=== PATIENT | female | born 1945 | race Caucasian/White ===

== ENCOUNTER 2025-06-06 20:01 | Emergency (ER) | payer MEDICARE, OTHER ==
[~2025-06-06] VITALS: Ht 172.7 cm; Wt 97.5 kg
--- NOTE | 2025-06-06 20:16 | Physician Documentation ---
History of Present Illness ~ Chief Complaint: Mechanical Fall Stated Complaint: FALL Time Seen by MD: 21:05 OK to notify your PCP?: Yes Source: patient Mode of Arrival: POV Exam Limitations: no limitations HPI 79-year-old female presents with laceration to left hand and left knee after tripping and falling on uneven pavement which are bandaged in triage bleeding controlled. She takes Coumadin for AFib. Denies any head strike or other i njuries. Denies any loss of consciousness. Medication Reconciliation Allergies: Coded Allergies: ciprofloxacin (Verified Allergy, Unknown, 06/06/25) meperidine (Verified Allergy, Unknown, 06/06/25) sulfamethoxazole (Verified Allergy, Unknown, 06/06/25) trimethoprim (Verified Allergy, Unknown, 06/06/25) Review of Systems All Other Systems at this time: Reviewed and Negative ROS Patient denies any other acute symptoms other than above. All other systems are negative Physical Exam Vital Signs: RN Vital Signs have been reviewed: Yes Pulse Oximetry Reflects: adequate oxygenation Physical Exam General Appearance: No distress HEENT: Normal OP, moist oral mucosa, PERRL, EOMI Neck: supple, normal ROM, trachea midline Pulmonary: No respiratory distress, CTA, BS equal Cardiac: RRR, no murmur, rub or gallop, GI: nondistended, soft, nontender, normal bowel sounds, no guarding, no rebound Extremities: Patient has a abrasions and aversion of skin over the left knee. There is an associated 3 cm laceration through the skin into the subcutaneous tissue. Bleeding is controlled. Patient has ecchymosis around the knee. Patient has fair range of motion. Left hand patient has a laceration at the base of the left thumb over the palmar surface. 2 cm laceration through the subcutaneous tissue. Bleeding is controlled. Patient also has a couple of very small abrasions and skin avulsion over the palm. Remaining extremities appear atraumatic Skin: intact, dry, warm, no rashes, see above Neuro: AAOx3, speech is clear, no focal motor weakness Psych: normal affect, good eye contact, no apparent hallucination, normal speech Procedures Laceration Repair #1: Location: Left hand Length (cm): 2 Anesthesia: Lidocaine w/ Epi Volume Anesthetic (mls): 2 Prep: irrigated by nurse Irrigated w/ Saline (mls): 50 Foreign Body: not identified Repaired: skin Wound Repaired With: sutures Suture Size/Type: 4-0, prolene Number of Superficial Sutures: 4 Layer Closure?: No Dressing Applied: simple Tolerated Procedure Well?: yes, no complications Laceration Repair #2: Location: Left knee Length (cm): 3 Anesthesia: Lidocaine w/ Epi Volume Anesthetic (mls): 5 Prep: irrigated by nurse Irrigated w/ Saline (mls): 150 Foreign Body: not identified Repaired: skin Wound Repaired With: sutures Suture Size/Type: 3-0, prolene Number of Superficial Sutures: 3 Layer Closure?: No Tolerated Procedure Well?: yes, no complications Progress Results/Orders Results/Orders Orders - PJ MORILLO MD Knee, Complete (06/06/25 20:20) Hand, Complete (3vw Min) (06/06/25 21:09) Wound Care Orders (06/06/25 21:25) Completed Orders - PJ MORILLO MD Knee, Complete (06/06/25 20:20) Hand, Complete (3vw Min) (06/06/25 21:09) Lidocaine 1% W/Epi 1:100,000 (Xylocaine (06/06/25 21:25) Tramadol Tablet (Ultram Tablet) (06/06/25 22:25) Medications Received in ER Medications (Trade) Dose Ordered Sig/Trae Route PRN Reason Start Time Stop Time Status Last Admin Dose Admin (Xylocaine 1%-EPI 1:100,000) 20 ml ONCE ONCE SQ 06/06/25 21:25 06/06/25 21:27 DC 06/06/25 22:42 20 ML (Ultram tablet) 100 mg ONCE ONCE PO 06/06/25 22:25 06/06/25 22:26 DC 06/06/25 22:40 100 MG Vital Signs 06/06/25 06/06/25 06/06/25 06/06/25 20:14 22:40 23:04 23:10 Temp 97.7 98.3 Pulse 73 78 Resp 14 16 16 16 B/P (MAP) 169/93 140/69 Pulse Ox 96 98 06/06/25 23:17 Pulse 66 Resp 16 B/P (MAP) 150/76 (100) Pulse Ox 94 Departure Time of Disposition: 22:20 Disposition: 01 HOME / SELF CARE / HOMELESS Impression: Primary Impression: Contusion of left knee Qualified Codes: S80.02XA - Contusion of left knee, initial encounter Additional Impressions: LEFT KNEE LACERATION, 3 CM SIMPLE REPAIR Contusion of left hand Qualified Codes: S60.222A - Contusion of left hand, initial encounter LEFT HAND LACERATION, 2 CM SIMPLE REPAIR Abrasions of multiple sites Condition: Improved Discharge Instructions: Contusion, Laceration Care, Adult, [id number] Additional Instructions: KEEP THE WOUNDS CLEAN AND DRY. APPLY DRESSING AND CHANGE THE DRESSING AT LEAST ONCE A DAY. DO NOT APPLY ANTIBIOTIC OINTMENT. HAVE THE SUTURES REMOVED IN APPROXIMATELY 12 DAYS. Education Educated: Patient, Family Educated regarding: diagnosis, treatment, need for follow up Additional Comment Medical Screen Exam This patient recieved a medical screening examination. After reviewing the individual's medical complaints with presenting symptoms and performing an appropriate physical examination, it was determined that no immediate life- threatening emergency medical condition is present. This individual is also not a women having contractions. Signature Scribe Signature: NO SCRIBE Attestation: NO SCRIBE CHRISTEN SCALES Jun 06, 2025 20:16 PJ MORILLO MD Jun 06, 2025 21:11
--- NOTE | 2025-06-06 21:54 | RADIOLOGY REPORT ---
EXAMINATIONS: 3 views of the left knee CLINICAL HISTORY: KNEE PAIN COMPARISON: None Findings and impression: Patient is status post left knee arthroplasty. The orthopedic hardware appears grossly intact. No di splaced fractures or dislocations are evident on the provided views. No appreciable knee joint effusi on.
[2025-06-06] MEDS: LIDOcaine 1% W/epiNEPHrine 1:100,000 20ml vial SQ ONE (22:42)
[2025-06-06 23:04] VITALS: TEMP 98.3
[2025-06-06 23:17] VITALS: BP 150/76; PULSE 66; RESP 16; O2SAT 94
--- NOTE | 2025-06-06 23:53 | RADIOLOGY REPORT ---
EXAM: DI HAND, COMPLETE (3VW MIN) REASON FOR EXAM: left hand trauma TECHNIQUE: PA, lateral, and oblique views of the left hand are submitted for review. COMPARISON: None FINDINGS: There is no acute fracture or dislocation. There is no widening of the scapholunate interva l. The soft tissues are grossly unremarkable. IMPRESSION: No acute fracture or dislocation.
== END 2025-06-06 23:18 | disposition home or self-care (01) ==
LOC: ER 20:02
DX: S61.412A Laceration without foreign body of left hand, initial encounter (principal); S81.012A Laceration without foreign body, left knee, initial encounter; I48.91 Unspecified atrial fibrillation; Z88.1 Allergy status to other antibiotic agents; Z88.2 Allergy status to sulfonamides; Z88.5 Allergy status to narcotic agent; W01.0XXA Fall on same level from slipping, tripping and stumbling without subsequent striking against object, initial encounter; Y93.89 Activity, other specified; Y92.89 Other specified places as the place of occurrence of the external cause; Y99.8 Other external cause status
CPT/HCPCS: 12002; 73130; 73564; 99284; A6402; J3490; J7030; Z7610; A6449